=== PATIENT | female | born 1955 | race Caucasian/White ===

== ENCOUNTER 2018-09-04 15:52 | Outpatient (CLI) | payer BC, SELFPAY ==
[2018-09-06 20:42] LABS: Measles IgG Antibody Positive
== END 2018-09-04 16:12 ==
PROVIDERS: PCP Naturopath; Visit Provider Naturopath
DX: Z01.84 Encounter for antibody response examination (principal)
CPT/HCPCS: 36415; 86765

== ENCOUNTER 2021-05-20 03:28 | Outpatient (CLI) | payer BC, SELFPAY ==
[2021-05-20 09:00] LABS: Abs Immature Grans 0.01 10^3/uL (0.0-0.06); Absolute Basophil Count 0.03 10^3/uL (0.0-0.2); Absolute Eosinophil Count 0.06 10^3/uL (0.0-0.7); Absolute Lymphocyte Count 1.51 10^3/uL (1.2-3.4); Absolute Monocyte Count 0.28 10^3/uL (0.1-0.8); Absolute Neutrophil Count 1.95 10^3/uL (1.2-6.7); Basophils % 0.8; Eosinophils % 1.6; HCT 40.4 % (36.0-46.0); HGB 13.3 g/dL (11.2-15.7); Immature Grans % 0.3; Lymphocytes % 39.3; MCH 30.7 pg (27.0-33.0); MCHC 32.9 % (32.0-36.0); MCV 93.3 fL (80-95); MPV 8.9 fL (8.0-11.0); Monocytes % 7.3; Neutrophils % 50.7; Nucleated RBC 0 %; Platelet Count 234 10^3/uL (130-400); RBC 4.33 10^6/uL (3.93-5.22); RDW 12.6 % (11.7-14.6); RDW-SD 43.6 fL; WBC 3.84 10^3/uL (4.4-10.8)
[2021-05-20 10:06] LABS: ALT 47 U/L (14-59); AST 23 U/L (15-37); Alkaline Phosphatase 92 U/L (46-116); Anion Gap 6.6 mmol/L (3-11); BUN 18 mg/dL (7-18); Bilirubin, Total 0.4 mg/dL (0.2-1.0); CO2 33.4 mmol/L (21.0-32.0); CREATININE 0.7 mg/dL (0.55-1.02); Calcium 9.4 mg/dL (8.5-10.1); Calculated LDL 130 mg/dL (<100); Chloride 103 mmol/L (98-107); Cholesterol 231 mg/dL (<200); Glucose 111 mg/dL (74-106); HDL Cholesterol 87 mg/dL (40-60); Potassium 4.3 mmol/L (3.5-5.1); Sodium 143 mmol/L (136-145); Triglyceride 73 mg/dL (<150)
[2021-05-20 10:26] LABS: Vitamin D 25 Total 18.1 ng/mL (30-100)
== END 2021-05-20 03:29 | disposition home or self-care (01) ==
LOC: LBO 03:28
PROVIDERS: PCP Naturopath; Visit Provider Acupuncturist
DX: Z00.00 Encounter for general adult medical examination without abnormal findings (principal)
CPT/HCPCS: 36415; 80053; 80061; 82306; 85025

== ENCOUNTER 2021-06-15 03:47 | Outpatient (CLI) | payer BC, SELFPAY ==
[2021-06-15 09:28] LABS: FREE T4 0.98 ng/dL (0.76-1.46); TSH 2.01 uIU/mL (0.36-3.74)
[2021-06-15 16:48] LABS: T3,Free 3.7 pg/mL (2.8-5.3)
[2021-06-15 17:04] LABS: T3, Total 128 ng/dL (97-169)
[2021-06-18 11:29] LABS: T3 (Triiodothyronine) Reverse 15 ng/dL (10-24)
== END 2021-06-15 03:48 | disposition home or self-care (01) ==
LOC: LBO 03:47
PROVIDERS: PCP Naturopath; Visit Provider Acupuncturist
DX: R53.83 Other fatigue (principal); K21.9 Gastro-esophageal reflux disease without esophagitis
CPT/HCPCS: 36415; 84439; 84443; 84480; 84481; 84482

== ENCOUNTER → 2023-03-01 00:52 | Outpatient (CLI) | payer MEDICARE, SELFPAY ==
--- NOTE | 2023-03-01 | DI.RAD_ITS ---
Exam(s) XR FOOT RT COMPLETE EXAM: XR FOOT RT COMPLETE CLINICAL HISTORY: RT FOOT PAIN, M79.671. TECHNIQUE: 2D digital imaging was performed of the right foot. Three images were obtained. AP, obl ique and lateral views were obtained. COMPARISON: No exams were available for comparison FINDINGS: BONES: No acute fracture is present. No bony destructive lesion is seen. There is a plantar calcaneal spur. There is an enthesophyte at the posterior calcaneus. JOINTS: No dislocation present. Mild degenerative changes are seen in the right foot. SOFT TISSUE: There is mild soft tissue swelling of the foot. IMPRESSION: Mild degenerative changes of the foot. DATA REPOSITORY: RADIATION DOSE DELIVERED:
== END ==
PROVIDERS: PCP Naturopath; Visit Provider Physician Assistant Medical
DX: M19.071 Primary osteoarthritis, right ankle and foot (principal)
CPT/HCPCS: 73630

== ENCOUNTER → 2023-03-22 09:05 | Outpatient (BNVA) | payer MEDICARE, SELFPAY | PROVIDERS: PCP Physician Assistant Medical; Referring Provider Physician Assistant Medical; Visit Provider Podiatrist | DX: M79.671 Pain in right foot (principal); M76.71 Peroneal tendinitis, right leg; M65.89 Other synovitis and tenosynovitis, multiple sites; M79.604 Pain in right leg | CPT/HCPCS: 99203 ==

== ENCOUNTER 2023-03-27 11:12 | Emergency (ER) | payer MEDICARE, SELFPAY ==
[2023-03-27 11:14] VITALS: BP 175/104; PULSE 64; RESP 15; TEMP 36.5; O2SAT 99
--- NOTE | 2023-03-27 11:15 | DI.RAD_ITS ---
Exam(s) XR FOOT RT COMPLETE EXAM: XR FOOT RT COMPLETE CLINICAL HISTORY: R foot pain. TECHNIQUE: 2D digital imaging was performed. COMPARISON: CR XR FOOT RT COMPLETE from 03/01/2023 FINDINGS: 3 views There is dorsal soft tissue swelling. No evidence of acute fracture or diastasis of the Lisfranc srniivas nt. No stress fractures the metatarsals evident. Stat bipartite sesamoid subjacent to the great toe metatarsal head again noted. No radiopaque foreign body. Small inferior calcaneal spur again noted . No pes planus. IMPRESSION: Soft tissue swelling. No fractures. DATA REPOSITORY: RADIATION DOSE DELIVERED:
--- NOTE | 2023-03-27 11:28 | ED.GENADUL_ITS ---
Discharge Plan Disposition Patient Disposition: Home Condition: Stable Discharge Details Clinical Impression: Pain in right foot Primary Care Provider: Rula Redman ED Provider: Simone Tapia Home Meds and New Rx's Prescriptions: Continued fexofenadine [Shaila Hives] 180 mg tablet 180 mg PO DAILY PRN rosuvastatin 40 mg tablet 40 mg PO DAILY psyllium husk (bulk) 1 GM powder 1 gm Miscellaneous BID Daily Multiple 1 EACH tablet 1 ea PO DAILY valacyclovir [Valtrex] 500 mg tablet 500 mg PO Q12H Qty: 30 3RF Hcl Pepsin 640 mg PO DAILY Rolaids 550-110 mg tablet,chewable 1 tab PO PRN PRN Discharge Instructions Instructions: Foot Sprain (ED) Additional Instructions: You were seen in the emergency department for your pain in your right foot, your foot was in a brace at time of injury and fracture was unlikely. You likely have a sprain and exacerbation of your tendinitis. You need to rest, ice, compress and elevate your foot, if your brace is too tight and you are at home resting your leg and not up and around on it please remove the brace and keep your foot immobilized without a brace. Please use therapeutic dosing of Tylenol (acetamenophen) & Advil (ibuprofen) in an alternating fashion as follows: Take 1000mg of Tylenol every 6 hours without missing doses- that is 4 times per day. Shelter in between the Tylenol dosings, take 400-600mg of Advil also on a 6 hour schedule, that is also 4 times per day. The daily maximum dosing of Tylenol is 4000mg, and the daily maximum dosing of Advil is 2400mg. This is safe to do for weeks. Please note that some common cold medications & prescription pain medications may contain acetamenophen and you need to read OTC drug labels and factor that in to maximum daily dosings. If you have persistent foot pain without signs of emergency i.e. loss of limb or life please follow-up with orthopedic practice, or urgent care. Please return to the emergency department for a cold white foot without capillary refill or worsening pain with mosquera redness and drainage of pus from any ulceration. Discharge Data Discharge Date/Time-TO BE ENTERED AT DEPARTURE: 03/27/23 12:27 Medical Decision Making This dictation utilizes [id number] dictation software and may contain unedit ed grammatical errors. 67 y/o F presents to ED today with a chief complaint of acute R foot pain in the setting of being treated with a walking boot for lateral R foot tendonitis- was climbing stairs and felt some straining, believes her boot is not wide enough for her foot. Onset and characteristics include pain across the mid-foot from lateral foot as well as some pain under her sole. Patients' medical history: history of ganglion cyst. Family and social history: noncontributory. Pertinent exam findings / vital signs include R Foot: Tenderness to palpation in the lateral right foot as well as in the plantar fascia, no crepitus extending across the midfoot, dorsalis pedis pulse intact, brisk capillary refill distal, no pain with passive range of motion, able to bear weight, minor friction blister on the medial aspect at the base of the great toe from her brace, no lesions or signs of infection or purulent drainage, no unilateral right calf swelling, Homans negative. Differential / pathologies of concern include Tendonitis, Unlikely Fracture, Friction Blister, NOT infection, plantar fasciitis. Diagnostic studies of: -XR R Foot - no acute fracture. Interventions of: -attempted to give patient a better sized boot as hers was a small- width is the same regardless, patient refused and will go purchase OTC brace. ED Course/Assessment/Plan: Patient presents for right foot pain with status in a walking boot per podiatry for tendinitis, felt a straining injury while climbing stairs the other day, fracture is unlikely and there is no acute fracture seen on x-ray, I attempted to aids counselor the patient on urgent care for appropriate use of patient's complaint, recommend RICE therapy and therapeutic dose of Tylenol and ibuprofen. Findings not consistent with septic arthritis, cellulitis, lesion, fracture. Disposition of Pain in Right Foot. Patient verbalized understanding of the plan and return to ED criteria and engaged in shared decision making. Medical Records Medical records reviewed: Yes I reviewed the patient's medical records. Imaging Data Radiologic Study: Imaging: X-Ray Radiologist's impression: EXAM: XR FOOT RT COMPLETE CLINICAL HISTORY: R foot pain. TECHNIQUE: 2D digital imaging was performed. COMPARISON: CR XR FOOT RT COMPLETE from 03/01/2023 FINDINGS: 3 views There is dorsal soft tissue swelling. No evidence of acute fracture or diastasis of the Lisfranc joint. No stress fractures the metatarsals evident. Stat bipartite sesamoid subjacent to the great toe metatarsal head again noted. No radiopaque foreign body. Small inferior calcaneal spur again noted. No pes planus. IMPRESSION: Soft tissue swelling. No fractures. HPI General Date/Time Provider Initiated Documentation: 03/27/23 11:20 . HPI Narrative: 67 year-old female presents to ED today by POV/ambulating with antalgic gait in a walking boot per podiatry for tendonitis with a chief complaint of felt a straining type injury while climbing stairs in her boot to R foot while climbing stairs on Monday. Quality described as straining across the lateral to mid foot, no radiation to complete numbness, mosquera redness, fever, warmth to touch, inability to bear weight. Severity is described as severe. Palliating factors include nothing specific- removed boot. Provoking factors include she believes the boot is not wide enough for her foot. Patient not anticoagulated. Related Data Home Medications Medication Instructions Recorded Confirmed psyllium husk (bulk) 100 % powder 1 gm miscellaneous BID 01/20/14 03/22/23 multivitamin-ferrous 1 ea PO DAILY 06/13/17 07/05/18 fumarate-folic acid 18 mg-400 mcg tablet (Daily Multiple) Hcl Pepsin 640 mg PO DAILY 10/30/17 07/05/18 calcium carbonate 550 mg-magnesium 1 tab PO PRN PRN 07/05/18 07/05/18 hydroxide 110 mg chewable tablet (Rolaids) valacyclovir 500 mg tablet 500 mg PO Q12H #30 tabs 07/05/19 03/22/23 (Valtrex) fexofenadine 180 mg tablet 180 mg PO DAILY PRN 03/21/23 03/22/23 (Shaila Hives) rosuvastatin 40 mg tablet 40 mg PO DAILY 03/21/23 03/22/23 Previous Rx's Medication Instructions Recorded valacyclovir 500 mg tablet 500 mg PO Q12H #30 tabs 07/05/19 (Valtrex) Allergies Allergy/AdvReac Type Severity Reaction Status Date / Time Penicillins Allergy Severe Hives Unverified 03/22/23 09:35 General Stated Complaint: Orthopedic RADHA: 4 Review of Systems All systems reviewed & are unremarkable except as noted in HPI and below PFSH All Active Problems (Updated 03/27/23 @ 12:03 by KRAIG Parisi) Pain in right foot (Acute) Pain in right leg (Acute) Pain in right foot (Acute) Tenosynovitis of right ankle (Acute) Peroneal tendinitis, right leg (Acute) Vitamin D deficiency (Acute) Zoster without complications (Acute) Hyperlipidemia (Acute 01/20/14) Surgical History History of surgical removal of ganglion cyst removal of ganglion cyst left middle finger MIP joint Ligation of fallopian tube Colonoscopy - MAC (11/03/17) Family History Father Heart disease Hyperlipidemia Grandmother Personal history of malignant neoplasm Breast Mother Osteoporosis Other Diabetes Social History Smoking/Tobacco Use Status: Never Smoking risk assessment performed?: Yes Drug use: Never Household members: spouse Number of Children: 8 current occupation: primary special education teacher, [employer]/songwriter Exam Narrative Exam Narrative: GENERAL APPEARANCE: Well-nourished, non-toxic, awake and alert, atraumatic, no acute distress. SKIN: Warm, pink, dry, intact, without rashes/lesions/ulcerations. HEAD: Normocephalic, atraumatic, normal hair distribution for gender/age. EYES: Pupils PERRLA, EOMs intact without nystagmus, normal conjunctiva, no exudates on lids/lashes. ENT: Nares patent, no circumoral cyanosis, no facial swelling NECK: Supple, trachea midline, painless cervical ROM. LUNGS/CHEST: Non-labored respirations, normal A/P diameter, symmetrical expansion, no chest wall deformity HEART (CV/PV): Regular rate, R dorsalis pedis pulse 2+, no peripheral edema, no JVD. ABDOMEN: Soft, non-distended, no guarding. MSK: Normal ROM, no swelling/deformity to bilateral UEs or LEs, moving all extremities without weakness, no cyanosis, spine midline without tenderness, normal curvature. R Foot: Tenderness to palpation in the lateral right foot as well as in the plantar fascia, no crepitus extending across the midfoot, dorsalis pedis pulse intact, brisk capillary refill distal, no pain with passive range of motion, able to bear weight, minor friction blister on the medial aspect at the base of the great toe from her brace, no lesions or signs of infection or purulent drainage, no unilateral right calf swelling, Homans negative NEURO: Mental Status AAOx4 - alert to person, place, time, events No facial droop, no forehead involvement. Motor: No focal weakness - strength 5/5 in bilateral UEs and LEs, proximal and distal, symmetric. Sensory: sensation intact to light touch globally. Gait mildly antalgic PSYCH: euthymic, cooperative, pleasant, appropriate speech Course Vital Signs Vital signs: Vital Signs Temperature 36.5 C 03/27/23 11:14 Pulse 64 03/27/23 11:14 Respiratory Rate 15 03/27/23 11:14 Blood Pressure 175/104 H 03/27/23 11:14 Pulse Oximetry 99 03/27/23 11:14 Temperature 36.5 C 03/27/23 11:14 Temperature Source Temporal Artery Scan 03/27/23 11:14 Pulse 64 03/27/23 11:14 Respiratory Rate 15 03/27/23 11:14 Blood Pressure 175/104 H 03/27/23 11:14 Blood Pressure Position Sitting 03/27/23 11:14 Pulse Oximetry 99 03/27/23 11:14 Oxygen Delivery Method Room Air 03/27/23 11:14 Oxygen Flow Rate 0 03/27/23 11:14 Pain Level 4 03/27/23 11:14 Comment worse with weight bearing 03/27/23 11:14
== END 2023-03-27 12:27 | disposition home or self-care (01) ==
PROVIDERS: Emergency Provider Physician Assistant; PCP Physician Assistant Medical
DX: M79.671 Pain in right foot (principal); S93.601A Unspecified sprain of right foot, initial encounter; X58.XXXA Exposure to other specified factors, initial encounter
CPT/HCPCS: 99283; 73630

== ENCOUNTER → 2023-04-05 08:29 | Outpatient (BNVA) | payer MEDICARE, SELFPAY | PROVIDERS: PCP Physician Assistant Medical; Referring Provider Physician Assistant Medical; Visit Provider Podiatrist | DX: M79.671 Pain in right foot (principal); M76.71 Peroneal tendinitis, right leg; M65.9 Synovitis and tenosynovitis, unspecified | CPT/HCPCS: 99214 ==

== ENCOUNTER → 2023-04-27 08:07 | Outpatient (BNVA) | payer MEDICARE, SELFPAY | PROVIDERS: PCP Physician Assistant Medical; Referring Provider Physician Assistant Medical; Visit Provider Podiatrist | DX: M79.671 Pain in right foot (principal); M79.604 Pain in right leg; M65.9 Synovitis and tenosynovitis, unspecified; M76.71 Peroneal tendinitis, right leg | CPT/HCPCS: 99213 ==

== ENCOUNTER → 2023-05-18 01:56 | Outpatient (CLI) | payer MEDICARE, SELFPAY ==
--- NOTE | 2023-05-18 | DI.MAMMO_ITS ---
Exam(s) MAMMO SCREENING EXAM: MAMMO SCREENING CLINICAL HISTORY: SCREENING MAMMO FOR BREAST CANCER Z12.31 TECHNIQUE: Bilateral full field digital CC and MLO mammographic images were obtained with 3D tomosyn thesis and utilizing computer aided detection (CAD). COMPARISON: Available for comparison. FINDINGS: Masses/Architectural Distortion: None seen. Microcalcifications: No suspicious pleomorphic-type are seen. Skin Thickening/Nipple Retraction: None. IMPRESSION: 1. No significant interval change with no specific features of malignancy noted. 2. Unless there is more urgent need, screening mammography is recommended, as per [place] [employer] guidelines. BI-RADS Category 1 - Negative Breast Density - Category B - Scattered areas of fibroglandular density Breast density category C or D implies that the patient has dense breast tissue. Dense breast tissue is very common and is not abnormal but dense breast tissue can make it harder to find cancer on a ma mmogram. Also, dense breast tissue may increase their breast cancer risk. This information about the result of the mammogram report was provided to the patient to raise their awareness. Use this report when you speak with the patient about their risks for breast cancer, which includes their family hist ory. At that time, you may recommend for more screening tests (Ultrasound or MRI) as they might be us eful based on their risk. A negative radiographic report should not delay biopsy if a dominant or clinically suspicious mass is present. Up to ten percent of cancers are not identified on mammography. A negative report may reinforce clinical impression. Adenosis and dense breasts may obscure an underlying neoplasm. False positive reports average 6 to 10%. Patient will receive a letter notifying them of these results.
--- NOTE | 2023-05-18 | DI.DEXA_ITS ---
Exam(s) XR DEXA BONE DENSITY W/WO RM EXAM: XR DEXA BONE DENSITY W/WO RM CLINICAL HISTORY: ASYMPTOMATIC MENOPAUSAL STATE Z78.0 TECHNIQUE: Holo[employer] Horizon C densitometer analysis of left hip, lumbar spine and left forearm. Lat eral survey image of the thoracic and lumbar spine. COMPARISON: No exams were available for comparison FINDINGS: Lateral view of the thoracic and lumbar spine shows no evidence of compression fractures. Bone mineral density measurements of the lumbar spine correspond to a total T-score of -1.5, in the osteopenic range. Bone mineral density measurements of the left hip correspond to a total T-score of -0.4. The femora l neck T-score is -0.8, in the normal range.. Theleft forearm bone mineral density measurements correspond to a T-score of the distal 3rd of -0.2, in the normal range.. IMPRESSION: Osteopenia of the lumbar spine. Normal bone mineral density of the hip and forearm.
== END ==
PROVIDERS: PCP Physician Assistant Medical; Visit Provider Physician Assistant Medical
DX: Z78.0 Asymptomatic menopausal state (principal); Z12.31 Encounter for screening mammogram for malignant neoplasm of breast; Z13.820 Encounter for screening for osteoporosis; M81.0 Age-related osteoporosis without current pathological fracture
CPT/HCPCS: 77063; 77067; 77080

== ENCOUNTER 2024-06-07 00:26 | Outpatient (CLI) | payer MEDICARE, SELFPAY ==
--- NOTE | 2024-06-07 | DI.MAMMO_ITS ---
Exam(s) MAMMO SCREENING EXAM: MAMMO SCREENING CLINICAL HISTORY: Screening, Z12.31; Renewal of prescription, Z76.0. TECHNIQUE: Bilateral full field digital CC and MLO mammographic images were obtained with 3D tomosyn thesis and utilizing computer aided detection (CAD). COMPARISON: Prior mammograms were reviewed. FINDINGS: There has been no significant change in the appearance and distribution of the fibroglandular tissue. There are no new spiculated masses nor malignant appearing microcalcification groups. There is no significant architectural distortion nor skin thickening-retraction. IMPRESSION: No radiographic evidence of malignancy. BI-RADS Category 1 - Negative Breast Density - Category B - Scattered areas of fibroglandular density Breast density Category C or D implies that the patient has dense breast tissue. Dense breast tissue can make it harder to find cancer on a mammogram. Dense breast tissue is also associated with an incr eased risk of breast cancer. This information about the result of the mammogram report was provided to the patient to raise their awareness. Use this report when you speak with the patient about their risks for breast cancer, which includes their family history. At that time, you may recommend additional screening tests (Ultrasoun d or MRI) as these tests may add significant information. A negative radiographic report should not delay biopsy if a dominant or clinically suspicious mass is present. Up to ten percent of cancers are not identified on mammography. A negative report may reinforce clinical impression. Adenosis and dense breasts may obscure an underlying neoplasm. False positive reports average 6 to 10%. Patient will receive a letter notifying them of these results.
== END 2024-06-07 00:46 ==
LOC: DI 00:26
PROVIDERS: PCP Physician Assistant Medical; Visit Provider Physician Assistant Medical
DX: Z76.0 Encounter for issue of repeat prescription (principal); Z12.31 Encounter for screening mammogram for malignant neoplasm of breast; R92.323 Mammographic fibroglandular density, bilateral breasts
CPT/HCPCS: 77063; 77067